=== PATIENT | female | born 1965 | race Caucasian/White ===

== ENCOUNTER 2016-11-13 11:26 | Emergency (ER) | payer BC ==
[2016-11-13] MEDS ORDERED: ASPIRIN 81 MG TAB.CHEW PO ONE (11:43)
[2016-11-13] MEDS ORDERED: KETOROLAC TROMETHAMINE 30 MG/ML VIAL IM ONE (11:47)
[2016-11-13] MEDS ORDERED: ASPIRIN 81 MG TAB.CHEW ONE (11:48)
[2016-11-13] MEDS ORDERED: KETOROLAC TROMETHAMINE 60 MG/2 ML VIAL IM ONE (11:48)
--- NOTE | 2016-11-13 11:51 | ERNOTE ---
Chest Pain/Cardiac HPI Chief Complaint: Chest Pain Time Seen by Provider: 11/13/16 11:33 Source: patient Exam Limitations: no limitations Immunizations: IMMUNIZATION HX Immunizations Up to Date No History of Influenza Vaccine Yes Hx Pneumococcal Vaccination No Allergies/Adverse Reactions: Allergies Sulfa (Sulfonamide Antibiotics) Allergy (Verified 05/05/16 12:16) Home Medications: HOME MEDICATIONS Amitriptyline HCl [Elavil] 20 mg PO HS 05/05/16 [Last Taken Unknown] Levothyroxine Sodium [Synthroid] 75 mcg PO DAILY 05/05/16 [Last Taken Unknown] Lurasidone HCl [Latuda] 60 mg PO DAILY 05/05/16 [Last Taken Unknown] Venlafaxine HCl [Effexor Xr] 150 mg PO DAILY 05/05/16 [Last Taken Unknown] Cyclobenzaprine HCl [Flexeril] 10 mg PO TID PRN #30 tab 11/13/16 [Last Taken Unknown] Naproxen [Naprosyn] 500 mg PO BID #60 tablet 11/13/16 [Last Taken Unknown] Narrative: He complains of left-sided chest pain onset 48 hours ago. Private pain is achy in nature and gets worse with truncal movement as well as palpation and deep breath. The pain is approximately 5 out of 10. Timing: constant Severity/Quality: mild Location: left chest Chest Pain Radiation: no radiation Activities at Onset: none Associated Symptoms: Present: denies symptoms Review of Systems - Review of Systems Constitutional: Present: See HPI EYE: Present: no symptoms reported ENT: Present: no symptoms reported Respiratory: Present: no symptoms reported Cardiology: Present: See HPI Gastrointestinal/Abdominal: Present: no symptoms reported Genitourinary: Present: no symptoms reported Musculoskeletal: Present: no symptoms reported Skin: Present: no symptoms reported Neurological: Present: no symptoms reported Endocrine: Present: no symptoms reported Hematologic/Lymphatic: Present: no symptoms reported Psych: Present: no symptoms reported - Patient's Past Medical History Patient History - Medical: Anxiety, Depression, Hypothyroidism, Migraines Patient History - Cardiac/Respiratory: No pertinent hx Patient History - Cancer: History Unknown Patient History - Surgical Procedures: Cancer Surgery, Additional Info: Fatty tumor removal from abdominal wall, benign in nature. Patient History - Other: AIDS LMP (females 10-50): Menopausal - Social History Living Situations: home Abuse History: No History of abuse Psych History: Hx of Anxiety, Hx of Depression, Current tx/ever been on anti- depressants or anti-anxiety meds Smoking Status: Never smoker Have you smoked in the past 12 months: No Do you dip or chew tobacco: No Alcohol Use: none Drug Use: none - Immunizations Immunizations Up to Date: No Hx Pneumococcal Vaccination: No History of Influenza Vaccine: Yes Physical Exam - Physical Exam General Appearance: Present: wd/wn, alert, mild distress Eye Exam: Normal inspection: bilateral, PERRL: bilateral Ears, Nose, Throat: Present: normal ENT inspection, H, normal pharynx Neck: Present: normal inspection, nontender Respiratory: Present: no respiratory distress, normal breath sounds, no accessory muscle use, lungs clear, chest tenderness - reproduces the complaint Cardiovascular/Chest: Present: regular rate, rhythm, no murmur, normal peripheral pulses Gastrointestinal/Abdominal: Present: normal bowel sounds, nontender, nondistended, soft, no organomegaly Rectal Exam: Present: deferred Back Exam: Present: normal inspection, normal range of motion Extremity Exam: Present: normal inspection, non-tender, no edema, normal range of motion Neurological Exam: Present: alert, oriented, normal mood/affect Skin Exam: Present: normal color, warm/dry Lymphatic Exam: Present: no adenopathy ED Progress - Results and Orders Patient's Lab Results:: I have reviewed the patient's lab results. - Vital Signs Patient's Vital Signs:: I have reviewed the patient's vital signs. Vital Signs: Vital Signs 11/13/16 11/13/16 11:31 11:37 Temperature 36.1 C L Pulse Rate 95 95 Respiratory 18 Rate Blood Pressure 129/79 O2 Sat by Pulse 100 Oximetry - EKG EKG: NSR - X-Ray X-Ray #1 X-Ray: chest Interpretation: Reviewed by me - Progress/Reassessment Chief Complaint: Chest Pain Progress:: Improved Progress Note-Subjective: 11/13/16 12:32 Pt. has had pain for approximately 48 hours with a normal EKG and negative troponin, this is unlikely cardiac in nature. She did improve with the Toradol , we'll start her on nonsteroidals as well as a muscle relaxer she'll follow-up with her family physician as needed. Departure - Departure Clinical Impression: Chest wall pain Disposition: Home self-care Condition: Good Instructions: Chest Wall Pain, [id number] Referrals: Andrade Love MD [Primary Care Provider] - Prescriptions: Cyclobenzaprine HCl [Flexeril] 10 mg PO TID PRN #30 tab PRN Reason: MUSCLE SPASMS Naproxen [Naprosyn] 500 mg PO BID #60 tablet
[2016-11-13 12:03] LABS: Hematocrit 40.9 % (37.0-47.0); Hemoglobin 13.5 gm/dL (12.5-16.0); Mean Platelet Volume 9.9 fl (6.0-9.5); Neutrophil # 3.8 K/mm3 (1.3-6.0); Platelet Count 350 K/mm3 (150-450); Red Blood Count 4.65 M/mm3 (4.2-5.4); Red Cell Distribution Width 13.1 % (11.5-14.0); White Blood Count 6.6 K/mm3 (4.0-10.5)
[2016-11-13 12:16] LABS: ALT 62 U/L (19-67); AST 36 U/L (0-48); Albumin * 3.9 gm/dl (3.4-5.0); Alkaline Phosphatase * 68 U/L (50-170); Anion Gap 13.7 mmol/L (6.8-13.8); BUN/Creatinine Ratio 11.7 (9.0-21.6); Bilirubin, Total 0.3 mg/dL (0.0-1.1); Blood Urea Nitrogen 11 mg/dL (3-23); Ca. Corrected For Albumin 9.2 mg/dL (8.4-10.2); Calcium * 9.4 mg/dL (7.9-10.9); Carbon Dioxide 27.2 mmol/L (24-32.6); Chloride 102 mmol/L (97-106); Glucose * 90 mg/dL (70-110); Magnesium 1.9 mg/dL (1.2-2.8); Potassium 3.9 mmol/L (3.4-4.6); Sodium 139 mmol/L (132-142); Total Protein 8.6 gm/dL (6.2-8.2); Troponin I Less than 0.017 ng/ml (0.00-0.10)
[2016-11-13 14:01] VITALS: BP 117/82
== END 2016-11-13 12:40 | disposition home or self-care (01) ==
LOC: ER 11:26
DX: R07.89 Other chest pain (principal); F41.8 Other specified anxiety disorders; E03.9 Hypothyroidism, unspecified